=== PATIENT | female | born 1985 | race Caucasian/White ===

== ENCOUNTER → 2018-02-22 | Outpatient (CLI) | payer OTHER ==
--- NOTE | 2018-02-22 15:56 | KCIC ---
PELVIS W/TV History: Right pelvic pain Comparison: None. Findings: Multiple transabdominal sonographic images of the pelvis are submitted. There is normal low resistance vascularity of the right ovary, normal color flow left ovary. Transvaginal ultrasound: Multiple transvaginal sonographic images of the pelvis are submitted. Uterus measured 7.8 x 3.8 x 4.5 cm. There is small quantity of fluid in the cervical canal. Endometrium is somewhat heterogeneous in appearance, measures about 1.3 cm in thickness. Right ovary measured 3.7 x 2.2 x 3.2 cm. Left ovary measured 2.4 x 1.4 x 3.6 cm. There is minimal free fluid in the posterior cul-de-sac. There is normal low resistance vascularity of the ovaries bilaterally. There are varices of the parametrial regions bilaterally. Impression: 1. There is nonspecific somewhat heterogeneous appearance of the endometrium, endometrial thickness potentially within normal limits for the patient's age especially during secretory phase although hyperplasia not excluded by this single exam. There is small quantity of nonspecific free fluid in the cul-de-sac. There are pelvic varices bilaterally. Electronically signed by: Tyrone Castillo MD (02/22/2018 3:52 PM) [id number]
== END | disposition home or self-care (01) ==
LOC: KCIC US 14:52
PROVIDERS: ATTEND Nurse Practitioner Family
DX: R10.2 Pelvic and perineal pain (principal)
CPT/HCPCS: 76830; 76856

== ENCOUNTER → 2018-02-24 | Outpatient (CLI) | payer OTHER ==
--- NOTE | 2018-02-24 19:20 | KCIC ---
Bilateral diagnostic digital mammograms with 3-D tomosynthesis: Reason for examination: Bilateral cysts for years. Occasional right axillary pain. No previous films available for comparison. New baseline. Bilateral mammograms in CC and oblique projections were obtained with 2-D imaging and 3-D tomosynthesis imaging on a Siemens Inspiration unit and reviewed on the workstation. Interpretation was made with the benefit of CAD. The skin and nipples show no abnormalities. No abnormal axillary lymph nodes are seen. The breast parenchyma is extremely dense. (Breast density: Category D.) There are no dominant masses, suspicious calcifications or architectural distortion. Impression: No evidence of malignancy. Ultrasound to follow. Your patient's mammogram demonstrates that she has dense breast tissue (breast density category C or D), which could hide abnormalities, and if she has other risk factors for breast cancer that have been identified, she might benefit from supplemental screening tests that may be suggested by you as her ordering physician. Dense breast tissue, in and of itself, is a relatively common condition. Therefore, this information is not provided to cause undue concern, but rather to raise your awareness and to promote discussion with your patient regarding the presence of other risk factors, in addition to dense breast tissue. Your patient's mammography results will be sent to her. BI-RAD Category 0: Incomplete. Needs additional imaging evaluation. Bilateral breast ultrasound: Bilateral whole breast ultrasound including evaluation of all 4 quadrants and the retroareolar and axillary regions of both breasts was performed. The right breast shows presence of a 1.2 x 0.6 cm nodule at the 2:00 position 5 cm from the nipple which the patient indicates the site of previous benign biopsy. The appearance is consistent with a fibroadenoma. No other cystic or solid lesions are seen. No abnormal appearing lymph nodes are seen in the right axilla. The left breast shows a small 4 mm fibrocystic lesion in the retroareolar 6:00 position. At the 3:00 position 7 cm from the nipple, there is a hypoechoic circumscribed lesion in parallel orientation measuring 6 mm in size and shows some mild posterior acoustic enhancement. The appearance is consistent with a small fibroadenoma. No other cystic or solid lesions are seen. No abnormal appearing lymph nodes are seen in the left axilla. IMPRESSION: 1.2 cm nodule consistent with a fibroadenoma corresponding to previously biopsied lesion (per patient) in the right breast. Small 4 mm fibrocystic lesion in the retroareolar 6:00 position of the left breast. Small hypoechoic nodule consistent with a probable fibroadenoma in the 3:00 position 7 cm from the nipple in the left breast. Recommend 6 month sonographic follow-up. BI-RADS Category 3: Probably Benign. "Our facility is accredited by the [employer] Mammography [employer]." This patient's information has been entered into a reminder system for the patient to be notified with the results of her examination and a target date for the next mammogram. Electronically signed by: Ree Pearson MD (02/24/2018 7:15 PM) [id number]
== END | disposition home or self-care (01) ==
LOC: KCIC MAMMO 12:52 → EDUNIT# 13:00
PROVIDERS: ATTEND Nurse Practitioner Family
DX: N63.24 Unspecified lump in the left breast, lower inner quadrant (principal)
CPT/HCPCS: 76641; 77066; G0279; 77062

== ENCOUNTER → 2018-10-18 | Outpatient (CLI) | payer OTHER ==
--- NOTE | 2018-10-18 15:29 | KCIC ---
Examination: Ultrasound pelvis HISTORY: History of pelvic pain COMPARISON: 02/22/2018 FINDINGS: The uterus measures 7.5 x 4.8 x 2.0 cm. The right ovary measures 3.5 x 2.5 x 1.1 cm. The endometrium measures 1.6 mm in thickness. The left ovary measures 4.0 x 2.8 x 1.2 cm. Blood flow identified in the right and left ovaries. Trace free fluid identified in the pelvis. IMPRESSION: 1. Unremarkable exam. Electronically signed by: Rod Marquez MD (10/18/2018 3:26 PM) [id number]
== END | disposition home or self-care (01) ==
LOC: KCIC US 12:07
PROVIDERS: ATTEND Nurse Practitioner Family
DX: R10.2 Pelvic and perineal pain (principal)
CPT/HCPCS: 76856

== ENCOUNTER → 2018-10-27 | Outpatient (CLI) | payer OTHER ==
--- NOTE | 2018-10-27 14:41 | KCIC ---
BREAST BILATERAL Clinical Indication: Six-month follow-up. Comparison: Bilateral diagnostic mammogram and breast ultrasound February 24, 2018. TECHNIQUE: Real-time ultrasound imaging of the right and left breast is performed. Findings: Right: The hypoechoic parallel mass at the 2:00 position 5 cm from the nipple measures 12 x 5 x 8 mm, previously 12 x 6 x 6 mm. Left: Fibrocystic change at the retroareolar 6:00 position is no longer seen. Hypoechoic mass at the 3:00 position 7 cm from the nipple is slightly smaller. This is less convincingly a fibroadenoma than on the prior study. Fibrocystic type change is possible. IMPRESSION: 1. 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 2. Fibrocystic changes of the left breast have decreased. 3. Recommend additional bilateral breast ultrasound follow-up in 12 months. 4. BI-RADS Category 3, probably benign. Electronically signed by: James Chen MD (10/27/2018 2:39 PM) [id number]
== END | disposition home or self-care (01) ==
LOC: KCIC US 13:07
PROVIDERS: ATTEND Nurse Practitioner Family
DX: N63.12 Unspecified lump in the right breast, upper inner quadrant (principal); N63.23 Unspecified lump in the left breast, lower outer quadrant
CPT/HCPCS: 76641

== ENCOUNTER → 2018-10-28 | Outpatient (CLI) | payer OTHER ==
--- NOTE | 2018-10-28 14:07 | KCIC ---
PQRS Compliance statement: One or more of the following individualized dose reduction techniques were utilized for this examination: 1. Automated exposure control. 2. Adjustment of the mA and/or kV according to patient size. 3. Use of iterative reconstruction technique. Indication:Kidney stone. Stone past 03/23/2018. Bilateral flank pain. TECHNIQUE: CT abdomen and pelvis without IV contrast with multiplanar reformats. COMPARISON: None FINDINGS: Limited evaluation of solid abdominal and pelvic organs due to lack of IV contrast. Heart is normal in size. No pericardial or pleural effusion. Clear lung bases. Noncontrast appearance of the liver, spleen, gallbladder, adrenals, are within normal limits. Punctate nonobstructing right renal stone. No left nephrolithiasis. No enlarged retroperitoneal or pelvic adenopathy. To free pelvic fluid noted. No bowel obstruction. Normal appendix. Anteverted uterus. Urinary bladder demonstrates no radiopaque stones. No pneumoperitoneum. No suspicious bony lesion. IMPRESSION: Limited evaluation of solid abdominal and pelvic organs due to lack of IV contrast. Punctate nonobstructing couple of right renal stones. Electronically signed by: Finesse So DO (10/28/2018 2:04 PM) [id number]
== END | disposition home or self-care (01) ==
LOC: KCIC CT 10:12
PROVIDERS: ATTEND Nurse Practitioner Family
DX: N20.0 Calculus of kidney (principal)
CPT/HCPCS: 74176

== ENCOUNTER → 2019-11-30 | Outpatient (CLI) | payer OTHER ==
--- NOTE | 2019-11-30 16:32 | KCIC ---
Bilateral diagnostic digital mammograms with 3-D tomosynthesis: Reason for examination: Follow-up nodules. Comparison is made to previous studies dated 02/24/2018 and 07/01/2007. Bilateral mammograms in CC and oblique projections were obtained with 2-D imaging and 3-D tomosynthesis imaging on a Siemens Inspiration unit and reviewed on the workstation. Interpretation was made with the benefit of CAD. The skin and nipples show no abnormalities. No abnormal axillary lymph nodes are seen. The breast parenchyma is extremely dense. (Breast density: Category D.) There continues to be some nodularity to the parenchyma in the breasts bilaterally. No suspicious calcifications are seen. Impression: Extremely dense parenchyma with some nodularity. Ultrasound to follow. Your patient's mammogram demonstrates that she has dense breast tissue (breast density category C or D), which could hide abnormalities, and if she has other risk factors for breast cancer that have been identified, she might benefit from supplemental screening tests that may be suggested by you as her ordering physician. Dense breast tissue, in and of itself, is a relatively common condition. Therefore, this information is not provided to cause undue concern, but rather to raise your awareness and to promote discussion with your patient regarding the presence of other risk factors, in addition to dense breast tissue. Your patient's mammography results will be sent to her. BI-RAD Category 0: Incomplete. Needs additional imaging evaluation. Bilateral breast ultrasound: Comparison is made to previous studies dated 10/27/2018 and 02/24/2018. Bilateral whole breast ultrasound including evaluation of all 4 quadrants and the retroareolar and axillary regions of both breasts was performed. In the right breast at the 2:00 position 5 cm from the nipple, there continues to be a 1.4 cm hypoechoic nodule in parallel orientation consistent with a fibroadenoma which is most significant interval change. There is focal ductal ectasia in the retroareolar 6:00 position. There is a 1.5 cm hypoechoic circumscribed nodule at the 11:00 position 9 cm from the nipple with some posterior acoustic enhancement consistent with fibroadenoma. No suspicious nodules are seen. No abnormal appearing lymph nodes are seen in the right axilla. In the left breast at the 3:00 position 7 cm from the nipple, there continues to be a small 5.8 mm hypoechoic nodule in parallel orientation consistent with fibroadenoma which shows a slight decrease in overall size. At the 5:00 position 6 cm from the nipple, there is a small 7.6 mm hypoechoic fibrocystic lesion. No suspicious nodules are seen. No abnormal appearing lymph nodes are seen in the left axilla. IMPRESSION: Nodules consistent with fibroadenoma at the 2:00 and 11:00 positions of the right breast. Nodule consistent with fibroadenoma in the 3:00 position of the left breast and nodule consistent with fibrocystic lesion at the 5:00 position of the left breast. No suspicious abnormalities are seen. Recommend 6 month follow-up with ultrasound. BI-RADS Category 3: Probably Benign. "Our facility is accredited by the [employer] Mammography [employer]." This patient's information has been entered into a reminder system for the patient to be notified with the results of her examination and a target date for the next mammogram. Electronically signed by: Ree Pearson MD (11/30/2019 4:29 PM) [id number]
== END ==
LOC: KCIC MAMMO 12:48
PROVIDERS: ATTEND Nurse Practitioner Family
DX: R92.1 Mammographic calcification found on diagnostic imaging of breast (principal)
CPT/HCPCS: 76641; 77066; G0279; 77062